=== PATIENT | female | born 1980 | race Caucasian/White ===

== ENCOUNTER 2016-10-13 15:26 | Emergency (ER) | payer BC, MEDICAID ==
[~2016-10-13 15:26] MED LIST: FOLITAB11 PO; IBUP-1114 PO; IRON65TA PO; PRENATAL VITAMIN PO
--- NOTE | 2016-10-13 16:36 | EDDOCDS ---
Physician Documentation [facility] Name: Kasia Pardo Age: 35 yrs Sex: Female : 1980 Arrival Date: 10/13/2016 Time: 15:26 Bed TR8 Private MD: Karon Faust M Disposition: 10/13/16 16:20 Discharged to Home/Self Care. Impression: Acute nasopharyngitis [common cold]. - Condition is Stable. - Discharge Instructions: Upper Respiratory Infection, Adult, Viral Infections, Cool Mist Vaporizers. - Prescriptions for azelastine 137 mcg (0.1 %) Nasal Aerosol, [place] - spray 2 spray by INTRANASAL route 2 times per day each nostril; 1 bottle. - Medication Reconciliation, Local Pharmacy Hours form. - Follow up: Karon Faust; When: Call to arrange an appointment; Reason: Further diagnostic work-up, Recheck today's complaints, Continuance of care. - Problem is new. - Symptoms are unchanged. Historical: - Allergies: PENICILLINS (thrush); - Home Meds: 1. Tylenol Sinus Severe 5-325-200 mg oral tab 2 tab every 4 hours as needed (Last dose: 10/13/2016 12:00) - PMHx: none; - PSHx: Tonsillectomy; right foot; Gastric Bypass; ; - Social history: Smoking status: Patient states former smoker of tobacco. No barriers to communication noted, The patient speaks fluent Canadian. - Family history: Not pertinent. - : The pt / caregiver states he / she is not on anticoagulants. Home medication list is obtained from the patient. - Exposure Risk Screening:: None identified. 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 10 in. (177.80 cm); Pain 0/10; 16:29 BP 123 / 75; Pulse 71; Resp 18; Temp 98.1; Pulse Ox 100% on R/A; Pain 0/10; nb2 15:28 Body Mass Index 30.85 (97.52 kg, 177.80 cm) elp MDM: 15:53 [facility] Payment Agreement was scanned into [employer] and attached to record. lg 16:15 Financial registration complete. matthew Signatures: Liz Chicas RN RN dls Ac Cortez, Reg Reg lg John Griffith PA PA btw Castle, Jennifer, KAUSHAL RN jc4 Jenna Garcia RN RN js13 Jaymie Solis The chart was reviewed and I authenticate all verbal orders and agree with the evaluation and treatment provided.Attachments: 15:53 [facility] Payment Agreement lg MTDD
--- NOTE | 2016-10-13 16:36 | EDDOCDS ---
Nurse's Notes [facility] Name: Kasia Pardo Age: 35 yrs Sex: Female : 1980 Arrival Date: 10/13/2016 Time: 15:26 Bed TR8 Private MD: Karon Faust M Diagnosis: Acute nasopharyngitis [common cold] Presentation: 10/13 15:30 Presenting complaint: Patient states: "sinus pressure, I can't breathe, and a slight jc4 sore throat". States symptoms for the past 10 days. Adult Sepsis Screening: The patient does not have new or worsening altered mentation. Patient's respiratory rate is less than 22. Systolic blood pressure is greater than 100. Patient has a qSOFA score of 0- Negative Sepsis Screen. Suicide/Homicide risk assessment- the patient denies having any suicidal and/or homicidal ideations and does not present with any other emotional, behavioral or mental health complaints. Status: Patient is not a service trainer or dependent. Transition of care: patient was not received from another setting of care. 15:30 Acuity: LUCRETIA Level 4 [facility] 15:30 Method Of Arrival: Walkin/Carried/Asstd 4 Triage Assessment: 15:33 General: Appears in no apparent distress. Pain: Denies pain. Pt Declines HIV testing. 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 Tylenol Sinus Severe 5-325-200 mg oral tab 2 tab every 4 hours as needed (Last dose: 10/13/2016 12:00) - PMHx: none; - PSHx: Tonsillectomy; right foot; Gastric Bypass; ; - Social history: Smoking status: Patient states former smoker of tobacco. No barriers to communication noted, The patient speaks fluent Persian. - Family history: Not pertinent. - : The pt / caregiver states he / she is not on anticoagulants. Home medication list is obtained from the patient. - Exposure Risk Screening:: None identified. Screenin:19 Screening information is obtained from the patient. Fall risk: No risks identified. js13 Assistance ADL's: requires no assistance with activities of daily living. Abuse/DV Screen: The patient / caregiver reports he/she is: not in a situation that causes fear, pain or injury. Nutritional screening: No deficits noted. Advance Directives: There is no active DNR order. home support is adequate. Assessment: 16:19 General: Appears in no apparent distress, Behavior is appropriate for age, cooperative. js13 Pain: Denies pain. Neurological: Level of Consciousness is awake, alert. Respiratory: Airway is patent Respiratory effort is even, unlabored, Respiratory pattern is regular, symmetrical, Reports cough that is. Derm: Skin is pink, warm & dry. Vital Signs: 15:28 BP 136 / 70; Pulse 74; Resp 18; Temp 98.3(O); Pulse Ox 100% ; Weight 97.52 kg; Height 5 elp ft. 10 in. (177.80 cm); Pain 0/10; 16:29 BP 123 / 75; Pulse 71; Resp 18; Temp 98.1; Pulse Ox 100% on R/A; Pain 0/10; nb2 15:28 Body Mass Index 30.85 (97.52 kg, 177.80 cm) el Vitals: 15:28 Log In Time: October 13, 2016 at 15:26. el ED Course: 15:27 Patient visited by Monalisa King PCA. elp 15:27 Patient moved to Waiting elp 15:28 Karon Faust is Private Physician. elp 15:29 Patient visited by Monalisa King PCA. elp 15:29 Patient moved to Pre RCE elp 15:31 Triage Initiated jc4 15:46 Patient moved to Triage 2 js13 15:53 [facility] Payment Agreement was scanned into [employer] and attached to record. lg 16:13 John Griffith PA is PHCP. btw 16:13 Tio Rob MD is Attending Physician. btw 16:13 Patient visited by John Griffith PA. btw 16:19 The patient / caregiver is instructed regarding the plan of care and ED course. js13 16:19 No IV's were initiated during this patient's visit. No procedures done that require js13 assistance. 16:20 Karon Faust is Referral Physician. btw 16:30 Patient visited by Luana Alex. nb2 16:32 Patient moved to TR8 dls 16:34 Patient has correct armband on for positive identification. Bed in low position. Call dls light in reach. Order Results: There are currently no results for this order. Outcome: 16:19 Discharge Assessment: Patient awake, alert and oriented x 3. No cognitive and/or js13 functional deficits noted. Patient verbalized understanding of disposition instructions. patient administered narcotics - no. The following High Risk Discharge criteria are identified: None. Discharged to home ambulatory. Condition: stable. Discharge instructions given to patient, Instructed on discharge instructions, follow up and referral plans. Demonstrated understanding of instructions, Pt was receptive of discharge instructions/ teaching. No special radiology studies were completed. Property :Personal belongings accompany Pt. 16:20 Discharge ordered by Provider. btw 16:34 The following High Risk Discharge criteria are identified: None. Discharged to home dls ambulatory. 16:35 Patient left the ED. dls Signatures: Liz Chicas, RN RN dls Ac [place], Reg Reg lg John Griffith, PA PA btw Jenna Pinto, RN RN jc4 Jenna Garcia,RN RN js13 Monalisa King, VERO SUPERVISOR MIXING Luana Patino2 REMIGIO
--- NOTE | 2016-10-16 11:23 | EDDOCDS ---
Physician Documentation [facility] Name: Kasia Pardo Age: 35 yrs Sex: Female : 1980 Arrival Date: 10/13/2016 Time: 15:26 Bed TR8 Private MD: Karon Faust M Disposition: 10/13/16 16:20 Discharged to Home/Self Care. Impression: Acute nasopharyngitis [common cold]. - Condition is Stable. - Discharge Instructions: Upper Respiratory Infection, Adult, Viral Infections, Cool Mist Vaporizers. - Prescriptions for azelastine 137 mcg (0.1 %) Nasal Aerosol, [place] - spray 2 spray by INTRANASAL route 2 times per day each nostril; 1 bottle. - Medication Reconciliation, Local Pharmacy Hours form. - Follow up: Karon Faust; When: Call to arrange an appointment; Reason: Further diagnostic work-up, Recheck today's complaints, Continuance of care. - Problem is new. - Symptoms are unchanged. Historical: - Allergies: PENICILLINS (thrush); - Home Meds: 1. Tylenol Sinus Severe 5-325-200 mg oral tab 2 tab every 4 hours as needed (Last dose: 10/13/2016 12:00) - PMHx: none; - PSHx: Tonsillectomy; right foot; Gastric Bypass; ; - Social history: Smoking status: Patient states former smoker of tobacco. No barriers to communication noted, The patient speaks fluent Botswanan. - Family history: Not pertinent. - : The pt / caregiver states he / she is not on anticoagulants. Home medication list is obtained from the patient. - Exposure Risk Screening:: None identified. 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 10 in. (177.80 cm); Pain 0/10; 16:29 BP 123 / 75; Pulse 71; Resp 18; Temp 98.1; Pulse Ox 100% on R/A; Pain 0/10; nb2 15:28 Body Mass Index 30.85 (97.52 kg, 177.80 cm) elp MDM: 15:53 [facility] Payment Agreement was scanned into [employer] and attached to record. lg 16:15 Financial registration complete. gjb 20:54 T-Sheet-- Draft Copy was scanned into [employer] and attached to record. klr Signatures: Liz Chicas RN RN dls Ac [place], Reg Reg lg John Griffith PA PA btw Castle, Jennifer, RN RN jc4 Jenna Garcia RN RN js13 Jaymie Solis Kathie klr The chart was reviewed and I authenticate all verbal orders and agree with the evaluation and treatment provided.Attachments: 15:53 [facility] Payment Agreement lg 20:54 T-Sheet-- Draft Copy klr Chart Complete MTDD
--- NOTE | 2016-10-16 11:23 | EDDOCDS ---
Nurse's Notes [facility] Name: Kasia Pardo Age: 35 yrs Sex: Female : 1980 Arrival Date: 10/13/2016 Time: 15:26 Bed TR8 Private MD: Karon Faust M Diagnosis: Acute nasopharyngitis [common cold] Presentation: 10/13 15:30 Presenting complaint: Patient states: "sinus pressure, I can't breathe, and a slight jc4 sore throat". States symptoms for the past 10 days. Adult Sepsis Screening: The patient does not have new or worsening altered mentation. Patient's respiratory rate is less than 22. Systolic blood pressure is greater than 100. Patient has a qSOFA score of 0- Negative Sepsis Screen. Suicide/Homicide risk assessment- the patient denies having any suicidal and/or homicidal ideations and does not present with any other emotional, behavioral or mental health complaints. Status: Patient is not a media services specialist or dependent. Transition of care: patient was not received from another setting of care. 15:30 Acuity: LUCRETIA Level 4 [facility] 15:30 Method Of Arrival: Walkin/Carried/Asstd 4 Triage Assessment: 15:33 General: Appears in no apparent distress. Pain: Denies pain. Pt Declines HIV testing. 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 Tylenol Sinus Severe 5-325-200 mg oral tab 2 tab every 4 hours as needed (Last dose: 10/13/2016 12:00) - PMHx: none; - PSHx: Tonsillectomy; right foot; Gastric Bypass; ; - Social history: Smoking status: Patient states former smoker of tobacco. No barriers to communication noted, The patient speaks fluent Maltese. - Family history: Not pertinent. - : The pt / caregiver states he / she is not on anticoagulants. Home medication list is obtained from the patient. - Exposure Risk Screening:: None identified. Screenin:19 Screening information is obtained from the patient. Fall risk: No risks identified. js13 Assistance ADL's: requires no assistance with activities of daily living. Abuse/DV Screen: The patient / caregiver reports he/she is: not in a situation that causes fear, pain or injury. Nutritional screening: No deficits noted. Advance Directives: There is no active DNR order. home support is adequate. Assessment: 16:19 General: Appears in no apparent distress, Behavior is appropriate for age, cooperative. js13 Pain: Denies pain. Neurological: Level of Consciousness is awake, alert. Respiratory: Airway is patent Respiratory effort is even, unlabored, Respiratory pattern is regular, symmetrical, Reports cough that is. Derm: Skin is pink, warm & dry. Vital Signs: 15:28 BP 136 / 70; Pulse 74; Resp 18; Temp 98.3(O); Pulse Ox 100% ; Weight 97.52 kg; Height 5 elp ft. 10 in. (177.80 cm); Pain 0/10; 16:29 BP 123 / 75; Pulse 71; Resp 18; Temp 98.1; Pulse Ox 100% on R/A; Pain 0/10; nb2 15:28 Body Mass Index 30.85 (97.52 kg, 177.80 cm) el Vitals: 15:28 Log In Time: October 13, 2016 at 15:26. el ED Course: 15:27 Patient visited by Monalisa King PCA. elp 15:27 Patient moved to Waiting elp 15:28 Karon Faust is Private Physician. elp 15:29 Patient visited by Monalisa King PCA. elp 15:29 Patient moved to Pre RCE elp 15:31 Triage Initiated jc4 15:46 Patient moved to Triage 2 js13 15:53 [facility] Payment Agreement was scanned into [employer] and attached to record. lg 16:13 John Griffith PA is PHCP. btw 16:13 Tio Rob MD is Attending Physician. btw 16:13 Patient visited by John Griffith PA. btw 16:19 The patient / caregiver is instructed regarding the plan of care and ED course. js13 16:19 No IV's were initiated during this patient's visit. No procedures done that require js13 assistance. 16:20 Karon Faust is Referral Physician. btw 16:30 Patient visited by Luana Alex. nb2 16:32 Patient moved to TR8 dls 16:34 Patient has correct armband on for positive identification. Bed in low position. Call dls light in reach. 20:54 T-Sheet-- Draft Copy was scanned into [employer] and attached to record. klr Order Results: There are currently no results for this order. Outcome: 16:19 Discharge Assessment: Patient awake, alert and oriented x 3. No cognitive and/or js13 functional deficits noted. Patient verbalized understanding of disposition instructions. patient administered narcotics - no. The following High Risk Discharge criteria are identified: None. Discharged to home ambulatory. Condition: stable. Discharge instructions given to patient, Instructed on discharge instructions, follow up and referral plans. Demonstrated understanding of instructions, Pt was receptive of discharge instructions/ teaching. No special radiology studies were completed. Property :Personal belongings accompany Pt. 16:20 Discharge ordered by Provider. btw 16:34 The following High Risk Discharge criteria are identified: None. Discharged to home dls ambulatory. 16:35 Patient left the ED. dls Signatures: Liz Chicas, RN RN dls Ac Cort[place], Reg Reg lg John Griffith PA PA btw Jenna Pinto, RN RN jc4 Jenna Garcia,RN RN js13 Monalisa King, COMMUNITY OUTREACH COORDINATOR COMMUNITY OUTREACH COORDINATOR Pratima Zacarias Nicole nb2 Chart Complete MTDD
--- NOTE | 2016-10-16 11:23 | EDDOCDS ---
Physician Documentation [facility] Name: Kasia Pardo Age: 35 yrs Sex: Female : 1980 Arrival Date: 10/13/2016 Time: 15:26 Bed TR8 Private MD: Karon Faust M Disposition: 10/13/16 16:20 Discharged to Home/Self Care. Impression: Acute nasopharyngitis [common cold]. - Condition is Stable. - Discharge Instructions: Upper Respiratory Infection, Adult, Viral Infections, Cool Mist Vaporizers. - Prescriptions for azelastine 137 mcg (0.1 %) Nasal Aerosol, [place] - spray 2 spray by INTRANASAL route 2 times per day each nostril; 1 bottle. - Medication Reconciliation, Local Pharmacy Hours form. - Follow up: Karon Faust; When: Call to arrange an appointment; Reason: Further diagnostic work-up, Recheck today's complaints, Continuance of care. - Problem is new. - Symptoms are unchanged. Historical: - Allergies: PENICILLINS (thrush); - Home Meds: 1. Tylenol Sinus Severe 5-325-200 mg oral tab 2 tab every 4 hours as needed (Last dose: 10/13/2016 12:00) - PMHx: none; - PSHx: Tonsillectomy; right foot; Gastric Bypass; ; - Social history: Smoking status: Patient states former smoker of tobacco. No barriers to communication noted, The patient speaks fluent [place]ican. - Family history: Not pertinent. - : The pt / caregiver states he / she is not on anticoagulants. Home medication list is obtained from the patient. - Exposure Risk Screening:: None identified. 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 10 in. (177.80 cm); Pain 0/10; 16:29 BP 123 / 75; Pulse 71; Resp 18; Temp 98.1; Pulse Ox 100% on R/A; Pain 0/10; nb2 15:28 Body Mass Index 30.85 (97.52 kg, 177.80 cm) elp MDM: 15:53 [facility] Payment Agreement was scanned into [employer] and attached to record. lg 16:15 Financial registration complete. gjb 20:54 T-Sheet-- Draft Copy was scanned into [employer] and attached to record. klr Signatures: Liz Chicas RN RN dls Ac Cort[place], Reg Reg lg John Griffith PA PA btw Castle, Jennifer, RN RN jc4 Jenna Garcia RN RN js13 Jaymie Solis Kathie klr The chart was reviewed and I authenticate all verbal orders and agree with the evaluation and treatment provided.Attachments: 15:53 [facility] Payment Agreement lg 20:54 T-Sheet-- Draft Copy klr Chart Complete MTDD
== END 2016-10-13 16:35 | disposition home or self-care (01) ==
LOC: M ED 15:26
DX: J06.9 Acute upper respiratory infection, unspecified (principal); Z88.0 Allergy status to penicillin; Z98.84 Bariatric surgery status

== ENCOUNTER → 2017-01-03 | Outpatient (CLI) | payer BC, MEDICAID ==
[2017-01-03 08:59] LABS: BASO % 0.2 % (0.0-1.0); EOS # 0.1 K/mm3 (0.0-0.50); EOS % 2.3 % (0.0-3.0); LARGE UNSTAINED CELL # 0.1 K/mm3 (0.0-0.4); LYMPH # 1.7 K/mm3 (1.5-4.5); MEAN CORPUSCULAR HEMOGLOBIN 22.6 pg (27.0-33.0); MEAN CORPUSCULAR HGB CONC 28.9 g/dl (32.0-36.5); MEAN CORPUSCULAR VOLUME 78.2 fl (80.0-96.0); MONO # 0.4 K/mm3 (0.0-0.8); MONO % 9.1 % (0.0-5.0); NEUTROPHILS # 1.9 K/mm3 (1.8-7.7); NEUTROPHILS % 45.4 % (36.0-66.0); PLATELET COUNT, AUTOMATED 324 k/mm3 (150-450); RED CELL DISTRIBUTION WIDTH 15.6 % (11.5-14.5); WHITE BLOOD COUNT 4.1 K/mm3 (4.0-10.0)
[2017-01-03 09:01] LABS: ADD MORPHOLOGY? YES
[2017-01-03 09:03] LABS: FOLATE 17.9 NG/ML; VITAMIN B12 LEVEL 391 PG/ML
[2017-01-03 09:04] LABS: ALBUMIN 3.5 GM/DL (3.2-5.2); ALBUMIN/GLOBULIN RATIO 0.83 (1.00-1.93); ALKALINE PHOSPHATASE 85 U/L (45-117); ALT/SGPT 21 U/L (12-78); ANION GAP 6 MEQ/L (8-16); AST/SGOT 17 U/L (15-37); BILIRUBIN,TOTAL 0.5 MG/DL (0.2-1.0); BLOOD UREA NITROGEN 16 MG/DL (7-18); CALCIUM LEVEL 8.2 MG/DL (8.5-10.1); CARBON DIOXIDE LEVEL 24 MEQ/L (21-32); CHLORIDE LEVEL 110 MEQ/L (98-107); CHOLESTEROL LEVEL 140 MG/DL (<200); CREATININE FOR GFR 0.96 MG/DL (0.55-1.02); FREE T4 0.89 NG/DL (0.76-1.46); GLOMERULAR FILTRATION RATE > 60.0 (>60); GLUCOSE, FASTING 90 MG/DL (70-105); POTASSIUM SERUM 4.2 MEQ/L (3.5-5.1); SODIUM LEVEL 140 MEQ/L (136-145); TOTAL PROTEIN 7.7 GM/DL (6.4-8.2); TRIGLYCERIDES LEVEL 88 MG/DL (<150)
[2017-01-03 09:37] LABS: HYPOCHROMASIA 3+; MICROCYTOSIS 1+; OVALOCYTES 1+
== END ==
LOC: M LAB 07:42
PROVIDERS: ATTEND Nurse Practitioner Family
DX: R53.83 Other fatigue (principal); Z83.3 Family history of diabetes mellitus; E66.9 Obesity, unspecified

== ENCOUNTER → 2017-04-11 | Outpatient (REF) | payer BC, MEDICAID ==
[~2017-04-11] MED LIST changes: +IBUP80TA PO; +VITA1CAP40 PO
[2017-04-11 20:18] LABS: ESTRADIOL 56.8 PG/ML; FOLLICLE STIMULATING HORMONE 6.8 mIU/mL; LUTEINIZING HORMONE 6.9 mIU/mL
== END ==
LOC: M LAB REF 17:20
PROVIDERS: ATTEND Obstetrics & Gynecology
DX: N95.9 Unspecified menopausal and perimenopausal disorder (principal)

== ENCOUNTER → 2017-05-03 | Day surgery (SDC) | payer BC, MEDICAID ==
[~2017-05-03] VITALS: Ht 177.8 cm; Wt 104.3 kg
[~2017-05-03] MED LIST changes: +ACETAMINOPHEN 650 MG SUPP As Ordered ONE; +ACETAMINOPHEN TAB 650MG DOSE (2X325MG) PO PRN; +BUPIVACAINE/EPIN 0.25% 30 ML VIAL As Ordered ONE; +FLUORESCEIN 10% (100MG/ML) 5 ML VIAL As Ordered ONE; +GLYCOPYRROLATE INJ 0.2 MG/ML 2 ML VIAL As Ordered ONE; +KETOROLAC 60 MG/2 ML VIAL (J1885) As Ordered ONE; +LIDOCAINE 1% MDV 20ML VIAL SQ PRN; +LIDOCAINE 2% INJ 100 MG/5 ML SDV (FOR ANES.) As Ordered ONE; +LR 1,000 ML IV ONE; +LR 1,000 ML IV SCH; +MIDAZOLAM INJ 2 MG/2 ML VIAL (J2250) As Ordered ONE; +NEOSTIGMINE 1MG/ML 5 ML SYRINGE (J2710) As Ordered ONE; +ONDANSETRON 4MG/2ML VIAL (J2405) As Ordered ONE; +ONDANSETRON 4MG/2ML VIAL (J2405) IV PRN; +PERCOCET 5MG/325MG TAB PO PRN; +PROPOFOL 200 MG/20 ML VIAL As Ordered ONE; +ROCURONIUM BROMIDE 50 MG/5 ML VIAL/SYRINGE As Ordered ONE; +dexameTHASONE 4 MG/ML 1ML VIAL (J1100) As Ordered ONE; +fentaNYL 100 MCG/2 ML INJECTION (J3010) As Ordered ONE
[2017-05-03 08:38] LABS: MEAN CORPUSCULAR HEMOGLOBIN 23.6 pg (27.0-33.0); MEAN CORPUSCULAR HGB CONC 30.3 g/dl (32.0-36.5); RED CELL DISTRIBUTION WIDTH 15.9 % (11.5-14.5); WHITE BLOOD COUNT 4.2 K/mm3 (4.0-10.0)
[2017-05-03 08:54] LABS: CONTROL LINE HCG INT CTR LINE PRESENT
[2017-05-03] MEDS: fentaNYL 100 MCG/2 ML INJECTION (J3010) IV PRN ×4 (11:15→11:30)
[2017-05-03 13:20] VITALS: BP 111/58
--- NOTE | 2017-05-05 07:13 | RO ---
DATE OF PROCEDURE: 05/03/2017 Kasia is a 36-year-old female with multiparity who desires permanent tubal sterilization. The patient has had a prior section as well as gastric bypass. PREOPERATIVE DIAGNOSIS: Multiparity, desires permanent tubal sterilization. POSTOPERATIVE DIAGNOSES: 1. Multiparity, desires permanent tubal sterilization. 2. Dense abdominal and pelvic adhesions. PROCEDURE: 1. Laparoscopy. 2. Attempted tubal ligation, unable to complete the procedure due to abdominal and pelvic adhesions. SURGEON: Gianluca Liz DO COACH WIRER: ANESTHESIA: General. COMPLICATIONS: None. ESTIMATED BLOOD LOSS: Loss less than 10 mL. FINDINGS: Upon placing the initial laparoscopic trocar, the scope was inserted under direct visualization. At this point dense omental adhesions were noted, unable to find a clear path to the pelvis given the amount of adhesions noted and the fact that they did not consent the patient for possible section. Decision was made not to proceed with a tubal ligation. She will be counseled in the office and at that point if she prefers to undergo a hysterectomy, one will be performed. In the meantime, she will be instructed on other methods of control. DESCRIPTION OF PROCEDURE: After obtaining informed consent, patient was taken to the operating room where general anesthetic was found to be adequate. She was then draped and prepped in the usual sterile fashion in dorsal lithotomy position. At this point, a straight catheter bladder was performed for approximately 250 mL of clear urine. We then placed a sponge stick in the posterior fornix of the vagina for uterine manipulation. Attention then turned to the abdomen where a 5 mm infraumbilical incision was made. Using the Veress needle, the abdomen was insufflated with CO2 gas. We then put a 5 mm XCEL trocar as well as the laparoscope, which was inserted under direct visualization. Upon visualizing the abdominal cavity, dense omental and pelvic adhesions were noted. After numerous attempts to visualize the pelvic structures we were unable to do that secondary to adhesions. It was not even feasible to place a second trocar for manipulation. At this point, given that the patient was not consented for anything further, a decision was made to stop the attempting at doing the tubal ligation. It was felt that due to the adhesions that she has had, it would not be beneficial to the patient to do a laparotomy and complete the tubal at that point. She will then be counseled on the office for possible hysterectomy, lysis of adhesions if she desires to proceed with that procedure. Please note the laparoscope was then removed, the air was removed from the abdomen and the laparoscopic port was closed using Dermabond. The patient was transferred to recovery room in stable condition.
== END | disposition home or self-care (01) ==
LOC: M SDC 08:07
PROVIDERS: ATTEND Obstetrics & Gynecology
DX: Z30.2 Encounter for sterilization (principal); Z98.84 Bariatric surgery status; Z72.0 Tobacco use
CPT/HCPCS: 36415; 58670; 84703; 85027; 86850; 86900; 86901; J1100; J1885; J2250; J2405; J2710; J3010

== ENCOUNTER → 2017-09-17 | Outpatient (CLI) | payer MEDICAID ==
[~2017-09-17] MED LIST changes: -ACETAMINOPHEN 650 MG SUPP As Ordered ONE; -ACETAMINOPHEN TAB 650MG DOSE (2X325MG) PO PRN; -BUPIVACAINE/EPIN 0.25% 30 ML VIAL As Ordered ONE; -FLUORESCEIN 10% (100MG/ML) 5 ML VIAL As Ordered ONE; -GLYCOPYRROLATE INJ 0.2 MG/ML 2 ML VIAL As Ordered ONE; -KETOROLAC 60 MG/2 ML VIAL (J1885) As Ordered ONE; -LIDOCAINE 1% MDV 20ML VIAL SQ PRN; -LIDOCAINE 2% INJ 100 MG/5 ML SDV (FOR ANES.) As Ordered ONE; -LR 1,000 ML IV ONE; -LR 1,000 ML IV SCH; -MIDAZOLAM INJ 2 MG/2 ML VIAL (J2250) As Ordered ONE; -NEOSTIGMINE 1MG/ML 5 ML SYRINGE (J2710) As Ordered ONE; -ONDANSETRON 4MG/2ML VIAL (J2405) As Ordered ONE; -ONDANSETRON 4MG/2ML VIAL (J2405) IV PRN; -PERCOCET 5MG/325MG TAB PO PRN; -PROPOFOL 200 MG/20 ML VIAL As Ordered ONE; -ROCURONIUM BROMIDE 50 MG/5 ML VIAL/SYRINGE As Ordered ONE; -dexameTHASONE 4 MG/ML 1ML VIAL (J1100) As Ordered ONE; -fentaNYL 100 MCG/2 ML INJECTION (J3010) As Ordered ONE
[2017-09-17 14:13] LABS: BASO % 0.4 % (0.0-1.0); EOS # 0.1 10^3/uL (0.0-0.50); EOS % 1.8 % (0.0-3.0); IMMATURE GRANULOCYTE % 0.2 % (0-0); LYMPH # 2.3 10^3/uL (1.5-4.5); LYMPH % 51.7 % (24.0-44.0); MEAN CORPUSCULAR HEMOGLOBIN 22.8 pg (27.0-33.0); MEAN CORPUSCULAR HGB CONC 29.7 g/dl (32.0-36.5); MEAN CORPUSCULAR VOLUME 76.7 fl (80.0-96.0); MONO # 0.6 10^3/uL (0.0-0.8); MONO % 12.3 % (0.0-5.0); NEUTROPHILS # 1.5 10^3/uL (1.8-7.7); NEUTROPHILS % 33.6 % (36.0-66.0); PLATELET COUNT, AUTOMATED 319 10^3/uL (150-450); RED CELL DISTRIBUTION WIDTH 16.4 % (11.5-14.5); WHITE BLOOD COUNT 4.5 10^3/uL (4.0-10.0)
== END ==
LOC: M LAB 13:37
PROVIDERS: ATTEND Nurse Practitioner Family
DX: D50.8 Other iron deficiency anemias (principal); E55.9 Vitamin D deficiency, unspecified

== ENCOUNTER → 2017-10-16 | Outpatient (REF) | payer MEDICAID | LOC: M LAB REF 15:56 | DX: R50.9 Fever, unspecified (principal) ==

== ENCOUNTER 2018-03-12 10:37 | Emergency (ER) | payer MEDICAID ==
[2018-03-12 13:03] LABS: BASO % 0.2 % (0.0-1.0); EOS # 0.1 10^3/uL (0.0-0.50); EOS % 1.8 % (0.0-3.0); HEMATOCRIT 33.5 % (36.0-47.0); HEMOGLOBIN 10.3 g/dl (12.0-15.5); IMMATURE GRANULOCYTE % 0.2 % (0-3.0); LYMPH # 2.3 10^3/uL (1.5-4.5); LYMPH % 52.6 % (24.0-44.0); MEAN CORPUSCULAR HEMOGLOBIN 24.1 pg (27.0-33.0); MEAN CORPUSCULAR HGB CONC 30.7 g/dl (32.0-36.5); MEAN CORPUSCULAR VOLUME 78.3 fl (80.0-96.0); MONO # 0.5 10^3/uL (0.0-0.8); MONO % 10.2 % (0.0-5.0); NEUTROPHILS # 1.5 10^3/uL (1.8-7.7); PLATELET COUNT, AUTOMATED 272 10^3/uL (150-450); RED BLOOD COUNT 4.28 10^6/uL (4.00-5.40); WHITE BLOOD COUNT 4.4 10^3/uL (4.0-10.0)
== END 2018-03-12 13:18 | disposition home or self-care (01) ==
LOC: M ED 10:37
DX: R04.0 Epistaxis (principal); J01.90 Acute sinusitis, unspecified; H65.01 Acute serous otitis media, right ear
CPT/HCPCS: 85025

== ENCOUNTER 2019-08-07 17:43 | Emergency (ER) | payer MEDICAID, OTHER ==
[~2019-08-07] VITALS: Ht 177.8 cm; Wt 92.7 kg
[~2019-08-07 17:43] MED LIST changes: +AUGM875T28 PO; +FLON1SPR; -VITA1CAP40 PO; +VITA50005 PO
[2019-08-07] MEDS ORDERED: OXYC-141 PO (18:01)
[2019-08-07] MEDS ORDERED: QC A650T3 PO (18:01)
[2019-08-07] MEDS ORDERED: LIDOCAINE 5% (LIDODERM) PATCH TD ONE (18:45)
[2019-08-07] MEDS ORDERED: diazePAM 5 MG TAB PO ONE (18:45)
[2019-08-07] MEDS ORDERED: ACETAMINOPHEN 500 MG TAB PO ONE (18:45)
[2019-08-07] MEDS ORDERED: ROBA750T4 PO (18:47)
[2019-08-07] MEDS ORDERED: LIDO1.1P TOP (18:53)
[2019-08-07 19:16] VITALS: BP 120/72
[2019-08-07] MEDS ORDERED: **NOTE PATIENT COMMENT** MISC XX SCH (21:00)
== END 2019-08-07 19:17 | disposition home or self-care (01) ==
LOC: M ED 17:43
DX: M62.830 Muscle spasm of back (principal); S39.012A Strain of muscle, fascia and tendon of lower back, initial encounter; X50.3XXA Overexertion from repetitive movements, initial encounter; Y92.242 Post office as the place of occurrence of the external cause; Y93.89 Activity, other specified; Y99.0 Civilian activity done for income or pay; Z87.442 Personal history of urinary calculi; Z98.84 Bariatric surgery status; Z87.891 Personal history of nicotine dependence; Z79.899 Other long term (current) drug therapy

== ENCOUNTER 2021-03-11 09:24 | Emergency (ER) | payer OTHER ==
[~2021-03-11] VITALS: Ht 177.8 cm; Wt 98.8 kg
[~2021-03-11 09:24] MED LIST changes: +LIDO1.1P TOP; +OXYC-141 PO; +QC A650T3 PO; +ROBA750T4 PO
[2021-03-11 09:56] LABS: BASO % 0.2 % (0.0-1.0); EOS # 0.1 10^3/uL (0.0-0.5); EOS % 1.5 % (0.0-3.0); HEMATOCRIT 35.9 % (36.0-47.0); HEMOGLOBIN 10.9 g/dl (12.0-15.5); LYMPH # 1.5 10^3/uL (1.5-5.0); LYMPH % 36.5 % (24.0-44.0); MEAN CORPUSCULAR HGB CONC 30.4 g/dl (32.0-36.5); MEAN CORPUSCULAR VOLUME 82.3 fl (80.0-96.0); MONO # 0.4 10^3/uL (0.0-0.8); MONO % 10.5 % (2.0-8.0); NEUTROPHILS # 2.1 10^3/uL (1.5-8.5); NEUTROPHILS % 51.1 % (36.0-66.0); PLATELET COUNT, AUTOMATED 300 10^3/uL (150-450); RED BLOOD COUNT 4.36 10^6/uL (4.00-5.40); WHITE BLOOD COUNT 4.1 10^3/uL (4.0-10.0)
[2021-03-11 10:27] LABS: HCG, SERUM QUALITATIVE NEGATIVE (NEGATIVE)
[2021-03-11 10:31] LABS: ALT/SGPT 22 U/L (12-78); BILIRUBIN,DIRECT 0.2 MG/DL (0.0-0.2); BILIRUBIN,TOTAL 0.5 MG/DL (0.2-1.0); BLOOD UREA NITROGEN 14 MG/DL (7-18); CARBON DIOXIDE LEVEL 21 MEQ/L (21-32); CHLORIDE LEVEL 111 MEQ/L (98-107); CK-MB VALUE MASS 1.1 NG/ML (<3.6); CPK CREATINE PHOSPHOKINASE 101 U/L (26-192); CREATININE FOR GFR 1.01 MG/DL (0.55-1.30); GLOMERULAR FILTRATION RATE > 60.0 (>58); GLUCOSE, FASTING 107 MG/DL (70-100); LIPASE 118 U/L (73-393); MB/CK RELATIVE INDEX 1.09 (< OR =4); POTASSIUM SERUM 4.1 MEQ/L (3.5-5.1); SODIUM LEVEL 139 MEQ/L (136-145); TOTAL PROTEIN 8.6 GM/DL (6.4-8.2); TROPONIN I < 0.02 NG/ML (< 0.10)
[2021-03-11] MEDS ORDERED: NS 1,000 ML IV ONE (11:00)
--- NOTE | 2021-03-11 11:32 | REP ---
INDICATION: upper abd pain into back COMPARISON: None. TECHNIQUE: Real time malone scale ultrasound examination using curved array transducer. FINDINGS: Liver demonstrates fatty infiltration without focal hepatic lesion. Pancreas is normal in appearance. The gallbladder is normal and without gallstones, wall thickening, or pericholecystic fluid. No biliary ductal dilatation is appreciated and the common bile duct measures 5.0 mm diameter. Right kidney is normal in reniform shape without hydronephrosis and measures 11.0 x 6.2 x 3.7 cm. No ascites in the visualized right upper quadrant. IMPRESSION: Hepatosteatosis. Otherwise, normal right upper quadrant ultrasound. <Electronically signed by Nj Felipe > 03/11/21 1121
--- NOTE | 2021-03-11 12:02 | REP ---
INDICATION: l flank pain, LUQ pain into back, hematuria COMPARISON: None TECHNIQUE: Axial noncontrast images from the lung bases to the pubic symphysis with coronal and sagittal reformations. This CT examination was performed using the following dose reduction techniques: Automated exposure control, adjustment of mA and/or kv according to the patient's size, and use of iterative reconstruction technique. FINDINGS: Lung bases are clear. Visualized heart and pericardium normal. Liver, spleen, pancreas, gallbladder, bilateral adrenal glands and kidneys are normal. Specifically, no perinephric stranding, hydroureteronephrosis, or nephroureterolithiasis is identified. There is a 2 mm calculus in the left hemipelvis which appears to be below the ureter and most consistent with phlebolith. The enteric system demonstrates moderate diffuse colonic fecal stasis which should be correlated clinically. Normal terminal ileum and appendix are identified in the right lower quadrant. No bowel obstruction or focal inflammatory process noted. Pelvis demonstrates normal bladder and age-appropriate uterus/adnexa with IUD in satisfactory position. No ascites. No free air. No adenopathy. No focal inflammatory stranding. Abdominal aorta without aneurysm. Musculoskeletal structures are intact and without acute osseous abnormality. IMPRESSION: 1. Single calcification left hemipelvis as described above most suggestive of phleboliths and less likely distal ureteral calculus. There is no associated hydroureteronephrosis or perinephric stranding. Correlation with physical examination is warranted. 2. Moderate fecal stasis and constipation possibly related to patient's symptoms. <Electronically signed by Nj Felipe > 03/11/21 [id number]
[2021-03-11] MEDS ORDERED: SUCR1SS PO (12:12)
[2021-03-11] MEDS ORDERED: PROT1TAB2 PO (12:12)
[2021-03-11 12:21] VITALS: BP 151/74
== END 2021-03-11 12:25 | disposition home or self-care (01) ==
LOC: M ED 09:24
DX: K59.00 Constipation, unspecified (principal); R11.0 Nausea; K76.0 Fatty (change of) liver, not elsewhere classified; K21.9 Gastro-esophageal reflux disease without esophagitis; Z87.442 Personal history of urinary calculi; Z98.84 Bariatric surgery status; Z79.899 Other long term (current) drug therapy

== ENCOUNTER 2021-09-10 12:21 | Emergency (ER) | payer OTHER ==
[~2021-09-10] VITALS: Ht 177.8 cm; Wt 99.3 kg
[2021-09-10 12:21] VITALS: BP 153/83
[~2021-09-10 12:21] MED LIST changes: +PROT1TAB2 PO; +SUCR1SS PO
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
[2021-09-10] MEDS ORDERED: FLUORESCEIN OPHTH 1 MG STRIP OD ONE (13:30)
[2021-09-10] MEDS ORDERED: ERYT5OIN25 OD (13:32)
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
== END 2021-09-10 13:52 | disposition home or self-care (01) ==
LOC: M ED 12:21
DX: H10.31 Unspecified acute conjunctivitis, right eye (principal)

== ENCOUNTER → 2022-03-01 | Outpatient (CLI) | payer OTHER ==
[~2022-03-01] MED LIST changes: +ERYT5OIN25 OD
== END ==
LOC: M WHC 15:51
PROVIDERS: ATTEND Obstetrics & Gynecology
DX: Z12.31 Encounter for screening mammogram for malignant neoplasm of breast (principal)

== ENCOUNTER 2022-07-19 17:47 | Emergency (ER) | payer OTHER ==
[~2022-07-19] VITALS: Ht 177.8 cm; Wt 102.1 kg
[2022-07-19 22:25] VITALS: BP 121/82
== END 2022-07-19 22:26 | disposition home or self-care (01) ==
LOC: M ED 17:47
DX: Z04.1 Encounter for examination and observation following transport accident (principal); M54.2 Cervicalgia; F17.200 Nicotine dependence, unspecified, uncomplicated

== ENCOUNTER → 2022-08-09 | Outpatient (CLI) | payer OTHER ==
[2022-08-09 14:25] LABS: BASO % 0.2 % (0.0-1.0); EOS # 0.1 10^3/uL (0.0-0.5); EOS % 2.9 % (0.0-3.0); HEMATOCRIT 33.7 % (36.0-47.0); HEMOGLOBIN 9.9 g/dl (12.0-15.5); LYMPH # 1.8 10^3/uL (1.5-5.0); MEAN CORPUSCULAR HEMOGLOBIN 25.3 pg (27.0-33.0); MEAN CORPUSCULAR HGB CONC 29.4 g/dl (32.0-36.5); MONO # 0.5 10^3/uL (0.0-0.8); MONO % 12.3 % (2.0-8.0); NEUTROPHILS # 1.7 10^3/uL (1.5-8.5); NEUTROPHILS % 40.6 % (36.0-66.0); PLATELET COUNT, AUTOMATED 292 10^3/uL (150-450); RED BLOOD COUNT 3.92 10^6/uL (4.00-5.40); WHITE BLOOD COUNT 4.1 10^3/uL (4.0-10.0)
[2022-08-09 15:34] LABS: ALT/SGPT 21 U/L (12-78); BILIRUBIN,TOTAL 0.4 MG/DL (0.2-1.0); BLOOD UREA NITROGEN 17 MG/DL (7-18); CALCIUM LEVEL 8.8 MG/DL (8.5-10.1); CARBON DIOXIDE LEVEL 22 MEQ/L (21-32); CHLORIDE LEVEL 110 MEQ/L (98-107); CHOLESTEROL LEVEL 136 MG/DL (<200); CREATININE FOR GFR 1.03 MG/DL (0.55-1.30); GLOMERULAR FILTRATION RATE > 60.0 (>58); GLUCOSE, FASTING 94 MG/DL (70-100); HDL CHOLESTEROL 50 MG/DL (>40); POTASSIUM SERUM 4.2 MEQ/L (3.5-5.1); SODIUM LEVEL 137 MEQ/L (136-145); TRIGLYCERIDES LEVEL 61 MG/DL (<150)
[2022-08-09 15:35] LABS: ALBUMIN 3.6 GM/DL (3.2-5.2); FERRITIN 6 NG/ML (8-252); IRON (FE) 40 UG/DL (50-170); LDL CHOLESTEROL 74 MG/DL (<100); NON-HDL-C 86 MG/DL; PERCENT SATURATION 9.2 % (13.2-45.0); TOTAL IRON BINDING CAPACITY 436 UG/DL (250-450)
[2022-08-09 16:36] LABS: HEMOGLOBIN A1c 5.7 %
[2022-08-09 18:17] LABS: TOTAL 25(OH) VITAMIN D 21.6 NG/ML (30.0-100.0)
[2022-08-09 18:25] LABS: VITAMIN B12 LEVEL 460 PG/ML (247-911)
== END ==
LOC: M PLALAB 10:41
PROVIDERS: ATTEND Physician Assistant
DX: Z98.84 Bariatric surgery status (principal)

== ENCOUNTER → 2022-08-21 | Outpatient (CLI) | payer OTHER ==
[~2022-08-21] MED LIST changes: +GASTROGRAFIN SOLUTION 30ML As Ordered ONE; +ISOVUE-370 76% 100ML VIAL As Ordered ONE
== END ==
LOC: M RAD 13:07
PROVIDERS: ATTEND Physician Assistant
DX: R10.9 Unspecified abdominal pain (principal); Z98.84 Bariatric surgery status; K57.30 Diverticulosis of large intestine without perforation or abscess without bleeding; Z97.5 Presence of (intrauterine) contraceptive device; N83.201 Unspecified ovarian cyst, right side; N85.4 Malposition of uterus

== ENCOUNTER → 2022-11-16 | Outpatient (CLI) | payer OTHER ==
[~2022-11-16] MED LIST changes: -GASTROGRAFIN SOLUTION 30ML As Ordered ONE; -ISOVUE-370 76% 100ML VIAL As Ordered ONE
[2022-11-16 10:58] LABS: BASO % 0.8 % (0.0-1.0); EOS # 0.2 10^3/uL (0.0-0.5); EOS % 4.1 % (0.0-3.0); HEMATOCRIT 36.7 % (36.0-47.0); HEMOGLOBIN 11.3 g/dl (12.0-15.5); LYMPH # 1.6 10^3/uL (1.5-5.0); LYMPH % 42.3 % (24.0-44.0); MEAN CORPUSCULAR HEMOGLOBIN 26.7 pg (27.0-33.0); MEAN CORPUSCULAR HGB CONC 30.8 g/dl (32.0-36.5); MEAN CORPUSCULAR VOLUME 86.8 fl (80.0-96.0); MONO # 0.6 10^3/uL (0.0-0.8); MONO % 14.9 % (2.0-8.0); NEUTROPHILS # 1.4 10^3/uL (1.5-8.5); NEUTROPHILS % 37.6 % (36.0-66.0); PLATELET COUNT, AUTOMATED 249 10^3/uL (150-450); RED BLOOD COUNT 4.23 10^6/uL (4.00-5.40); WHITE BLOOD COUNT 3.7 10^3/uL (4.0-10.0)
[2022-11-16 11:04] LABS: PERCENT SATURATION 29.3 % (13.2-45.0)
[2022-11-16 11:07] LABS: TOTAL 25(OH) VITAMIN D 38.6 NG/ML (20.0-100.0)
== END ==
LOC: M PLALAB 08:25
PROVIDERS: ATTEND Physician Assistant
DX: D50.8 Other iron deficiency anemias (principal); E55.9 Vitamin D deficiency, unspecified

== ENCOUNTER → 2023-03-19 | Outpatient (CLI) | payer OTHER | LOC: M WHC 13:37 | PROVIDERS: ATTEND Obstetrics & Gynecology | DX: Z12.31 Encounter for screening mammogram for malignant neoplasm of breast (principal) ==

== ENCOUNTER → 2023-12-23 | Outpatient (CLI) | payer OTHER ==
[~2023-12-23] MED LIST changes: +AMOX875T2 PO; +ERGO500029; +FERR325T19; +FLUC10TA PO; +KETO10TAB PO; +PANT40TA29 PO; +PRED20TA PO; +VENL75CA47
[2023-12-23 08:01] LABS: BASO % 0.5 % (0.0-1.0); EOS # 0.1 10^3/uL (0.0-0.5); EOS % 3.8 % (0.0-3.0); HEMOGLOBIN 12.3 g/dl (12.0-15.5); LYMPH # 1.7 10^3/uL (1.5-5.0); LYMPH % 45.5 % (24.0-44.0); MEAN CORPUSCULAR HEMOGLOBIN 30.5 pg (27.0-33.0); MEAN CORPUSCULAR HGB CONC 33.2 g/dl (32.0-36.5); MEAN CORPUSCULAR VOLUME 91.8 fl (80.0-96.0); MONO # 0.5 10^3/uL (0.0-0.8); MONO % 13.3 % (2.0-8.0); NEUTROPHILS # 1.4 10^3/uL (1.5-8.5); NEUTROPHILS % 36.6 % (36.0-66.0); PLATELET COUNT, AUTOMATED 227 10^3/uL (150-450); RED BLOOD COUNT 4.03 10^6/uL (4.00-5.40); WHITE BLOOD COUNT 3.7 10^3/uL (4.0-10.0)
[2023-12-23 08:27] LABS: CHOLESTEROL RISK RATIO 2.64 (<5); HDL CHOLESTEROL 50.7 MG/DL (>40); LDL CHOLESTEROL 72.3 MG/DL (<100); NON-HDL-C 83.3 MG/DL; PERCENT SATURATION 23.8 % (13.2-45.0)
[2023-12-23 08:29] LABS: FERRITIN 10.9 NG/ML (7.3-270.7); THYROID STIMULATING HORMONE 2.468 uIU/ML (0.55-4.78); TOTAL 25(OH) VITAMIN D 37.4 NG/ML (20.0-100.0)
[2023-12-23 08:30] LABS: FREE T4 0.84 NG/DL (0.89-1.76)
[2023-12-23 09:24] LABS: HEMOGLOBIN A1c 5.3 % (4.0-6.0)
== END ==
LOC: M LAB 06:59
PROVIDERS: ATTEND Physician Assistant
DX: D50.8 Other iron deficiency anemias (principal)

== ENCOUNTER 2023-12-24 03:43 | Emergency (ER) | payer OTHER ==
[~2023-12-24] VITALS: Ht 177.8 cm; Wt 110.0 kg
[~2023-12-24 03:43] MED LIST changes: -AMOX875T2 PO; -ERGO500029; -FERR325T19; -FLUC10TA PO; -KETO10TAB PO; -PANT40TA29 PO; -PRED20TA PO; -VENL75CA47
[2023-12-24] MEDS: AUGMENTIN 875 MG TAB PO ONE (08:18)
[2023-12-24] MEDS: predniSONE 20 MG TAB PO ONE (08:19)
[2023-12-24] MEDS: KETOROLAC 60MG 2ML VIAL IM ONE (08:19)
[2023-12-24] MEDS ORDERED: ERGO500029 (08:23)
[2023-12-24] MEDS ORDERED: FERR325T19 (08:23)
[2023-12-24] MEDS ORDERED: VENL75CA47 (08:23)
[2023-12-24] MEDS ORDERED: PANT40TA29 PO (08:25)
[2023-12-24] MEDS ORDERED: FLUC10TA PO (08:53)
[2023-12-24] MEDS ORDERED: AMOX875T2 PO (08:53)
[2023-12-24] MEDS ORDERED: KETO10TAB PO (08:53)
[2023-12-24] MEDS ORDERED: PRED20TA PO (08:53)
[2023-12-24 09:05] VITALS: BP 127/81; TEMP 99.1; O2SAT 98
== END 2023-12-24 09:14 | disposition home or self-care (01) ==
LOC: M ED 03:43
DX: K04.7 Periapical abscess without sinus (principal); F17.200 Nicotine dependence, unspecified, uncomplicated; Z98.84 Bariatric surgery status; Z79.2 Long term (current) use of antibiotics; Z79.52 Long term (current) use of systemic steroids; Z79.899 Other long term (current) drug therapy
CPT/HCPCS: 96372; 99283; J1885; J7512

== ENCOUNTER → 2024-03-23 | Outpatient (CLI) | payer OTHER ==
[~2024-03-23] MED LIST changes: +AMOX875T2 PO; +ERGO500029; +FERR325T19; +FLUC10TA PO; +KETO10TAB PO; +PANT40TA29 PO; +PRED20TA PO; +VENL75CA47
== END ==
LOC: M WHC 14:01
PROVIDERS: ATTEND Obstetrics & Gynecology
DX: Z12.31 Encounter for screening mammogram for malignant neoplasm of breast (principal)

== ENCOUNTER → 2024-12-25 | Outpatient (CLI) | payer OTHER ==
[2024-12-25 15:32] LABS: HEMATOCRIT 37.7 % (36.0-47.0); HEMOGLOBIN 12.7 g/dl (12.0-15.5); MEAN CORPUSCULAR HEMOGLOBIN 30.4 pg (27.0-33.0); MEAN CORPUSCULAR HGB CONC 33.7 g/dl (32.0-36.5); MEAN CORPUSCULAR VOLUME 90.2 fl (80.0-96.0); PLATELET COUNT, AUTOMATED 210 10^3/uL (150-450); RED BLOOD COUNT 4.18 10^6/uL (4.00-5.40); WHITE BLOOD COUNT 4.4 10^3/uL (4.0-10.0)
[2024-12-25 16:11] LABS: FERRITIN 21.5 NG/ML (7.3-270.7)
[2024-12-25 16:12] LABS: TOTAL 25(OH) VITAMIN D 24.9 NG/ML (20.0-100.0)
[2024-12-25 16:18] LABS: IRON (FE) 105 UG/DL (50-170); PERCENT SATURATION 31.9 % (13.2-45.0); TOTAL IRON BINDING CAPACITY 329 UG/DL (250-425)
[2024-12-25 16:19] LABS: ALBUMIN 3.8 G/DL (3.2-5.2); ALKALINE PHOSPHATASE 65 U/L (35-104); ALT/SGPT 21 U/L (7.0-40); AST/SGOT 16 U/L (<34); BILIRUBIN,TOTAL 0.5 MG/DL (0.3-1.2); BLOOD UREA NITROGEN 22 MG/DL (9-23); CALCIUM LEVEL 8.8 MG/DL (8.5-10.1); CARBON DIOXIDE LEVEL 20 MMOL/L (20-31); CHLORIDE LEVEL 110 MMOL/L (98-107); CREATININE FOR GFR 0.98 MG/DL (0.55-1.30); GLOMERULAR FILTRATION RATE > 60.0 (>58); GLUCOSE, FASTING 93 MG/DL (60-100); POTASSIUM SERUM 4.6 MMOL/L (3.5-5.1); SODIUM LEVEL 141 MMOL/L (136-145); TOTAL PROTEIN 7.5 G/DL (5.7-8.2)
[2024-12-25 16:20] LABS: FOLATE 8.2 NG/ML (>5.4)
[2024-12-25 16:27] LABS: VITAMIN B12 LEVEL 267 PG/ML (211-911)
== END ==
LOC: M PLALAB 14:08
PROVIDERS: ATTEND Nurse Practitioner Family
DX: E55.9 Vitamin D deficiency, unspecified (principal); D50.8 Other iron deficiency anemias; Z83.3 Family history of diabetes mellitus; Z98.84 Bariatric surgery status

== ENCOUNTER → 2025-01-07 | Outpatient (CLI) | payer OTHER ==
[2025-01-07 17:00] LABS: FOLLICLE STIMULATING HORMONE 5.6 mIU/ML; LUTEINIZING HORMONE 3.5 mIU/ML; PROLACTIN 5.83 NG/ML; THYROID STIMULATING HORMONE 1.669 uIU/ML (0.55-4.78)
[2025-01-07 17:01] LABS: FREE T4 0.91 NG/DL (0.89-1.76)
== END ==
LOC: M PLALAB 12:32
PROVIDERS: ATTEND Obstetrics & Gynecology
DX: R10.2 Pelvic and perineal pain (principal); N94.6 Dysmenorrhea, unspecified

== ENCOUNTER → 2025-01-15 | Outpatient (CLI) | payer OTHER | LOC: M WHC 13:16 | PROVIDERS: ATTEND Obstetrics & Gynecology | DX: R10.2 Pelvic and perineal pain (principal); N83.201 Unspecified ovarian cyst, right side ==

== ENCOUNTER → 2025-06-24 | Outpatient (REF) | payer OTHER | LOC: M SFHCPLAZ 10:21 | PROVIDERS: ATTEND Nurse Practitioner Family | DX: J02.9 Acute pharyngitis, unspecified (principal) ==